=== PATIENT | female | born 1980 | race Caucasian/White ===

== ENCOUNTER 2024-08-18 05:35 | Inpatient (IN) ==
[2024-08-18] MEDS: Lactated Ringers 1000 ml BAG 1,000 ML IV ONE (06:26)
[2024-08-18] MEDS: Sodium Citrate/Citric Acid LIQ 15 ML UDC PO ONE (06:26)
[2024-08-18] MEDS ORDERED: Morphine PF AMP (0.5MG/ML) 5 MG/10 ML AMP ONE (06:31)
[2024-08-18] MEDS ORDERED: Oxytocin 10 UNITS/ML 1 ML VIAL ONE (06:31)
[2024-08-18] MEDS ORDERED: Ondansetron 4 mg VIAL 2 MG/ML 2 ml VIAL ONE (06:31)
[2024-08-18] MEDS ORDERED: Dexamethasone IV 4 MG/ML VIAL 1 ml VIAL ONE (06:31)
[2024-08-18 06:41] LABS: ABS Eosinophils 0.1 10^3/uL (0.0-0.5); ABS Lymphocytes 1.7 10^3/uL (1.0-4.8); ABS Monocytes 0.5 10^3/uL (0.0-0.9); ABS Neutrophils 4.2 10^3/uL (1.5-7.6); ABS Nucleated RBC 0.01 10^3/ul; Eosinophil % 0.8 %; Hematocrit 33.9 % (35-45); Hemoglobin 11.8 g/dL (11.5-14.3); Lymphocyte % 25.9 %; Mean Corpuscular Hemoglobin 31.9 pg (27-33); Mean Corpuscular Hgb Conc 34.8 g/dL (31-36); Mean Corpuscular Volume 91.8 fL (80-97); Mean Platelet Volume 7.3 fL (7.5-11.2); Nucleated Red Blood Cells % 0.1 %/100WBC (0.0-0.8); Platelet Count 273 10^3/uL (150-450); White Blood Count 6.5 10^3/uL (3.8-11.8)
[2024-08-18] MEDS ORDERED: fentaNYL 100 mcg/2 ml 50 MCG/ML VIAL ONE (06:59)
[2024-08-18] MEDS ORDERED: Acetaminophen IV 1 GM/100ML 1,000 MG/100 ML BAG IV PRN (08:28)
[2024-08-18] MEDS ORDERED: Metoclopramide 5 MG/ML VIAL (10 mg) IV PRN (08:28)
[2024-08-18] MEDS ORDERED: Naloxone 0.4 mg VIAL 0.4 mg/ml 1 ml VIAL IV PUSH PRN (08:28)
[2024-08-18] MEDS ORDERED: Ondansetron 4 mg VIAL 2 MG/ML 2 ml VIAL IV PRN (08:28)
[2024-08-18] MEDS ORDERED: Acetaminophen IV 1 GM/100ML 1,000 MG/100 ML BAG IV ONE (08:38)
[2024-08-18 09:33] LABS: Urine Appearance Clear; Urine Bilirubin Negative (Negative); Urine Blood Negative (Negative); Urine Color Light-Yellow; Urine Glucose Negative (Negative); Urine Ketones 1+ (Negative); Urine Nitrite Negative (Negative); Urine Protein Negative (Negative); Urine Specific Gravity 1.013 (1.002-1.030); Urine Urobilinogen Negative (Negative); Urine pH 6.5 (5.0-8.0)
[2024-08-18] MEDS ORDERED: Dibucaine 1% OINT 28.35 GM TUBE PR PRN (09:33)
[2024-08-18] MEDS ORDERED: Witch Hazel PAD JAR TOPICAL PRN (09:33)
[2024-08-18] MEDS ORDERED: Glycerin ADULT 2.4 gm SUPP PR PRN (09:33)
[2024-08-18 09:59] LABS: Urine Benzodiazepine Screen None Detected (None Detect); Urine Cannabinoids Screen None Detected (None Detect); Urine Opiates Screen None Detected (None Detect)
[2024-08-18] MEDS ORDERED: Lactated Ringers 1000 ml BAG 1,000 ML IV SCH (10:00)
[2024-08-18] MEDS: Oxytocin in LR 20,000 MILLI.UNIT/1,000 ML BAG IV SCH (11:09)
[2024-08-18] MEDS: ceFOXitin 2 GM IVPREMIX 2 GM/50 ML BAG IVPB ONE (13:42)
[2024-08-18] MEDS: Methylene Blue 0.5 % 50 MG/10 ML AMP IV ONE (13:42)
[2024-08-18] MEDS: Buffered Lidocaine 1% SYRIN 1 ml INTRADERM ONE (13:42)
[2024-08-18] MEDS: Lactated Ringers 1000 ml BAG 1,000 ML IV SCH (13:44)
[2024-08-19 06:36] LABS: ABS Lymphocytes 1.5 10^3/uL (1.0-4.8); ABS Monocytes 0.4 10^3/uL (0.0-0.9); ABS Neutrophils 5.9 10^3/uL (1.5-7.6); Eosinophil % 0.4 %; Hematocrit 29.5 % (35-45); Hemoglobin 10.4 g/dL (11.5-14.3); Lymphocyte % 18.8 %; Mean Corpuscular Hemoglobin 32.4 pg (27-33); Mean Corpuscular Hgb Conc 35.4 g/dL (31-36); Mean Corpuscular Volume 91.8 fL (80-97); Mean Platelet Volume 7.3 fL (7.5-11.2); Platelet Count 247 10^3/uL (150-450); Red Blood Count 3.21 10^6/uL (3.63-4.92); Red Cell Distribution Width 15.2 % (12-17); White Blood Count 7.9 10^3/uL (3.8-11.8)
[2024-08-20 08:26] VITALS: BP 115/72
== END 2024-08-20 16:41 | disposition home or self-care (01) | DRG 785 ==
LOC: MCHOB 05:35
PROVIDERS: ADMIT Obstetrics & Gynecology; ATTEND Obstetrics & Gynecology